=== PATIENT | male | born 1955 | race African-American/Black ===

== ENCOUNTER 2018-02-03 14:12 | Emergency (ER) | payer MEDICAID, OTHER ==
[~2018-02-03] VITALS: Ht 182.9 cm; Wt 81.8 kg
[2018-02-03 17:00] VITALS: BP 142/85
[2018-02-03] MEDS ORDERED: KETOROLAC TROMETHAMINE 10 MG TABLET PO ONE (17:00)
== END 2018-02-03 17:10 | disposition home or self-care (01) ==
LOC: EMS 14:14
DX: S50.02XA Contusion of left elbow, initial encounter (principal); W11.XXXA Fall on and from ladder, initial encounter; Y93.89 Activity, other specified; Y92.89 Other specified places as the place of occurrence of the external cause; Y99.8 Other external cause status
CPT/HCPCS: 29105; 70450; 72125; 99284

== ENCOUNTER 2018-05-26 14:22 | Emergency (ER) | payer OTHER ==
[~2018-05-26] VITALS: Ht 182.9 cm; Wt 81.8 kg
[2018-05-26 15:01] VITALS: BP 135/83
[2018-05-26] MEDS ORDERED: LIDOCAINE 2%/EPI 1:200,000/PF 20 ML VIAL INJ ONE (15:15)
== END 2018-05-26 16:47 | disposition home or self-care (01) ==
LOC: EMS 14:23
DX: S01.81XA Laceration without foreign body of other part of head, initial encounter (principal); F31.9 Bipolar disorder, unspecified; F20.9 Schizophrenia, unspecified; W22.8XXA Striking against or struck by other objects, initial encounter; Y93.89 Activity, other specified; Y92.89 Other specified places as the place of occurrence of the external cause; Y99.8 Other external cause status
CPT/HCPCS: 12014; 99283; J2001

== ENCOUNTER 2018-05-30 13:20 | Emergency (ER) | payer OTHER ==
[~2018-05-30] VITALS: Ht 182.9 cm; Wt 77.3 kg
[2018-05-30 13:26] VITALS: BP 118/90
== END 2018-05-30 16:34 | disposition left against medical advice (07) ==
LOC: EMS 16:29
DX: Z48.02 Encounter for removal of sutures (principal); Z53.21 Procedure and treatment not carried out due to patient leaving prior to being seen by health care provider

== ENCOUNTER 2021-03-12 13:44 | Emergency (ER) | payer OTHER ==
[~2021-03-12] VITALS: Ht 180.3 cm; Wt 92.6 kg
[2021-03-12] MEDS ORDERED: SODIUM CHLORIDE 0.9% 1,000 ML IV ONE (14:15)
[2021-03-12 17:03] VITALS: BP 128/72
== END 2021-03-12 18:46 | disposition left against medical advice (07) ==
LOC: EMS 14:00
DX: T40.0X1A Poisoning by opium, accidental (unintentional), initial encounter (principal); Y92.89 Other specified places as the place of occurrence of the external cause
CPT/HCPCS: 71045; 93005; 96360; 96361; 99285

== ENCOUNTER 2021-04-03 11:50 | Emergency (ER) | payer OTHER ==
[~2021-04-03] VITALS: Ht 182.9 cm; Wt 88.6 kg
[2021-04-03] MEDS ORDERED: ACETAMINOPHEN 325 MG TABLET PO ONE (13:30)
[2021-04-03] MEDS ORDERED: SODIUM CHLORIDE 0.9% 1,000 ML IV ONE (13:30)
[2021-04-03] MEDS ORDERED: IOHEXOL 350 MG/ML 100 ML VIAL ONE (13:41)
[2021-04-03] MEDS ORDERED: SODIUM CHLORIDE 0.9% 100 ML ONE (13:41)
[2021-04-03 13:52] LABS: BASOPHILS % (AUTO) 0.6 % (0.0-2.0); EOSINOPHILS % (AUTO) 4.7 % (1.0-6.0); HEMATOCRIT 45.9 % (41-53); HEMOGLOBIN 14.9 g/dL (13.5-17.5); LYMPHOCYTES # (AUTO) 2.3 K/uL (1.0-4.8); LYMPHOCYTES % (AUTO) 29.1 % (22.0-44.0); MEAN CORPUSCULAR HEMOGLOBIN 29.6 pg (26.0-34.0); MEAN CORPUSCULAR HGB CONC 32.4 G/dL (31.0-37.0); MEAN CORPUSCULAR VOLUME 91 fL (80-100); MONOCYTES # (AUTO) 0.9 K/uL (0.1-1.0); MONOCYTES % (AUTO) 11.2 % (2.0-9.0); NEUTROPHILS # (AUTO) 4.2 K/uL (1.8-7.7); NEUTROPHILS % (AUTO) 54.4 % (40.0-70.0); PLATELET COUNT (AUTO) 194 K/uL (150-450); RED BLOOD CELL COUNT(AUTO) 5.03 MIL/uL (4.50-5.90)
[2021-04-03 14:04] LABS: ANION GAP 10 mmol/L (8-16); CALCIUM, TOTAL 9.2 mg/dL (8.8-10.5); CARBON DIOXIDE 26 mmol/L (22-29); CHLORIDE 105 mmol/L (98-107); GLOMERULAR FILTR. RATE CALC > 60 mL/min (>60); GLUCOSE,RANDOM 115 mg/dL (70-110); POTASSIUM 3.3 mmol/L (3.5-5.1); SODIUM SERUM 141 mmol/L (136-145); UREA NITROGEN, BLOOD 18 mg/dL (7-18)
[2021-04-03 14:07] LABS: ALANINE AMINOTRANSFERASE 27 U/L (12-78); ALKALINE PHOSPHATASE 79 U/L (46-116); ASPARTATE AMINOTRANSFERASE 22 U/L (15-37); BILIRUBIN,TOTAL 1.1 mg/dL (0.1-1.0); LIPASE 90 U/L (73-393); TOTAL PROTEIN, SERUM 8.3 g/dL (6.4-8.2)
[2021-04-03 14:09] LABS: COVID AG,FIA SOURCE NASOPHARYNGEAL
[2021-04-03] MEDS ORDERED: POTASSIUM CHLORIDE 20 MEQ ER TABLET PO ONE (15:15)
[2021-04-03] MEDS ORDERED: CIPROFLOXACIN HCL 250 MG TABLET PO ONE (15:30)
[2021-04-03 17:14] VITALS: BP 123/70
== END 2021-04-03 20:00 | disposition home or self-care (01) ==
LOC: EMS 11:50
DX: K52.9 Noninfective gastroenteritis and colitis, unspecified (principal); R51.9 Headache, unspecified; F17.210 Nicotine dependence, cigarettes, uncomplicated; F12.90 Cannabis use, unspecified, uncomplicated; F31.9 Bipolar disorder, unspecified; F20.9 Schizophrenia, unspecified; Z20.822 Contact with and (suspected) exposure to COVID-19
CPT/HCPCS: 36415; 70450; 74177; 80053; 83690; 83735; 85025; 87426; 96360; 96361; 99285; A9575; G0480; J7030; J7050

== ENCOUNTER 2021-06-02 11:38 | Emergency (ER) | payer OTHER ==
[~2021-06-02] VITALS: Ht 188 cm; Wt 88.6 kg
[2021-06-02 20:30] VITALS: BP 130/74
== END 2021-06-02 22:00 | disposition home or self-care (01) ==
LOC: EMS 11:38
DX: T40.1X1A Poisoning by heroin, accidental (unintentional), initial encounter (principal); F31.9 Bipolar disorder, unspecified; F20.9 Schizophrenia, unspecified; F17.210 Nicotine dependence, cigarettes, uncomplicated; F12.90 Cannabis use, unspecified, uncomplicated; Y92.89 Other specified places as the place of occurrence of the external cause
CPT/HCPCS: 99285; Z7502

== ENCOUNTER 2025-08-04 23:06 | Inpatient (IN) | payer MEDICARE, OTHER ==
[~2025-08-04] VITALS: Ht 177.8 cm; Wt 89.8 kg
[2025-08-04] MEDS ORDERED: NALOXONE HCL 1 MG/ML 2 ML SYRINGE ONE (23:22)
[2025-08-04] MEDS: NALOXONE HCL 1 MG/ML 2 ML SYRINGE IVP ONE (23:26)
[2025-08-04] MEDS: SODIUM CHLORIDE 0.9% 1,000 ML IV ONE (23:43)
[2025-08-04 23:55] VITALS: PULSE 83; RESP 20; O2SAT 98
[2025-08-05] VITALS (16 sets, daily range): BP systolic 91–155; BP diastolic 55–85; PULSE 52–78; RESP 25–28; TEMP 95.5–99.2; O2SAT 94–98
[2025-08-05 00:01] LABS: APPEARANCE,URINE HAZY (CLEAR); GLUCOSE, URINE (UA) NEGATIVE (NEGATIVE); LEUKOCYTE ESTERASE ,URINE NEGATIVE (NEGATIVE); NITRATE,URINE NEGATIVE (NEGATIVE); OCCULT BLOOD,URINE LARGE (NEGATIVE); PH,URINE DRUG SCREEN 5.5 (5.0-8.0); SPECIFIC GRAVITIY, URINE 1.030 (1.003-1.030)
[2025-08-05 00:08] LABS: ALCOHOL, URINE DRUG SCREEN NEGATIVE (NEGATIVE); AMPHET/METH SCREEN,URINE NEGATIVE (NEGATIVE); BARBITURATE SCREEN, URINE NEGATIVE (NEGATIVE); CANNABINOID SCREEN,URINE POSITIVE (NEGATIVE); COCAINE SCREEN,URINE POSITIVE (NEGATIVE); METHADONE SCREEN, URINE NEGATIVE (NEGATIVE)
[2025-08-05] MEDS: LABETALOL HCL 5 MG/ML 20 ML VIAL IVP ONE ×2 (00:12→00:44)
[2025-08-05 00:16] LABS: GLUCOMETER DEV NAME(LOC) ER.7; GLUCOSE,POINT OF CARE 127 MG/DL (70-110)
[2025-08-05] MEDS: PROPOFOL 1000 MG/ISO-OSM 100 ML IV PRN ×2 (00:19→18:08)
[2025-08-05 00:27] LABS: PLATELET COUNT (AUTO) 146 K/uL (150-450); RED BLOOD CELL COUNT(AUTO) 4.55 MIL/uL (4.50-5.90); RED CELL DISTRIBUTION WIDTH 14.4 % (11.5-14.5); WHITE BLOOD COUNT (AUTO) 12.6 K/uL (4.5-11.0)
[2025-08-05 00:34] LABS: CALCIUM, TOTAL 8.3 mg/dL (8.8-10.5); CREATININE 1.02 mg/dL (0.60-1.30); GLOMERULAR FILTR. RATE CALC > 60 mL/min (>60); GLUCOSE,RANDOM 134 mg/dL (70-110); SODIUM SERUM 145 mmol/L (136-145); UREA NITROGEN, BLOOD 21 mg/dL (7-18)
[2025-08-05 00:37] LABS: ABG BASE EXCESS 0.1 mmol/L (-2.0-3.0); ABG CARBOXYHEMOGLOBIN 2.4 % (0.5-1.5); ABG HCO3 23.2 mmol/L (21.0-28.0); ABG METHEMOGLOBIN 0.9 % (0.0-1.5); ABG OXYGEN CONTENT 21.5 mL/dL (15.0-23.0); ABG OXYGEN SATURATION 100.0 % (94.0-98.0); ABG OXYHEMOGLOBIN 96.7 % (94.0-98.0); ABG PCO2 66 mmHg (32.0-48.0); ABG PH 7.239 (7.350-7.450); ABG TOTAL HEMOGLOBIN 14.9 G/dL (13.5-17.5); FRACTIONATED INSPIRED OXYGEN 100.0 % (21-100.0); SOURCE, BLOOD GAS ARTERIAL; TEMPERATURE, FAHRENHEIT, BG 98.7 FAHREN (96.0-98.6)
[2025-08-05 00:38] LABS: ABG A-A DIFF O2 184.5 mmHg (10-20.0); ALLEN TEST, BLOOD GAS Positive; O2 DEVICE,BLOOD GAS VENTILATOR (ROOM AIR); PATIENT RATE, BG 20.0 min.; PEEP,BG 5 cm H2O; PO2, ARTERIAL BG 462.3 mmHg (83.0-108.0); SET RATE, BG 20.0 min.; SITE, BLOOD GAS RT RADIAL; SPONTANEOUS VT, BG 439 ml; VT, ABG 440 ml
[2025-08-05 00:38] LABS: SQUAMOUS EPITHELIAL CELL,UR Rare /LPF (None Seen)
[2025-08-05 00:43] LABS: TROPONIN I-HIGH SENSITIVITY 17 ng/L (<76)
[2025-08-05 00:45] LABS: LACTIC ACID 2.4 mmol/L (0.4-2.0)
[2025-08-05] MEDS ORDERED: BISACODYL 10 MG RECTAL RECTAL SUPPOSITORY PR PRN (00:45)
[2025-08-05] MEDS ORDERED: MAGNESIUM SULFATE 4 GM/WATER 100 ML IV PRN (00:45)
[2025-08-05] MEDS ORDERED: MAGNESIUM OXIDE 400 MG TABLET PO PRN (00:45)
[2025-08-05] MEDS ORDERED: ACETAMINOPHEN 325 MG TABLET PO PRN (00:45)
[2025-08-05] MEDS ORDERED: ONDANSETRON HCL 4 MG/2 ML VIAL IVP PRN (00:45)
[2025-08-05] MEDS ORDERED: MAGNESIUM SULFATE 2 GM/WATER 50 ML IV PRN (00:45)
[2025-08-05 01:01] LABS: ALCOHOL, BLOOD (SERUM) < 3 mg/dL (0-10)
[2025-08-05 01:31] LABS: ABG BASE EXCESS -0.2 mmol/L (-2.0-3.0); ABG CARBOXYHEMOGLOBIN 1.8 % (0.5-1.5); ABG HCO3 23.1 mmol/L (21.0-28.0); ABG METHEMOGLOBIN 0.3 % (0.0-1.5); ABG OXYGEN CONTENT 20.2 mL/dL (15.0-23.0); ABG OXYGEN SATURATION 98.5 % (94.0-98.0); ABG OXYHEMOGLOBIN 96.4 % (94.0-98.0); ABG TOTAL HEMOGLOBIN 14.7 G/dL (13.5-17.5); FRACTIONATED INSPIRED OXYGEN 80.0 % (21-100.0); PO2, ARTERIAL BG 152.8 mmHg (83.0-108.0); SOURCE, BLOOD GAS ARTERIAL; TEMPERATURE, FAHRENHEIT, BG 98.9 FAHREN (96.0-98.6)
[2025-08-05 01:41] LABS: ABG PCO2 64 mmHg (32.0-48.0); ABG PH 7.245 (7.350-7.450); ALLEN TEST, BLOOD GAS Positive; SITE, BLOOD GAS LFT RADIAL
[2025-08-05 01:42] LABS: ABG A-A DIFF O2 350.0 mmHg (10-20.0); O2 DEVICE,BLOOD GAS VENTILATOR (ROOM AIR); PATIENT RATE, BG 24.0 min.; PEEP,BG 5 cm H2O; SET RATE, BG 24.0 min.; SPONTANEOUS VT, BG 470 ml; VT, ABG 460 ml
[2025-08-05] MEDS: FentaNYL CIT 1000MCG/0.9% NACL 100 ML IV PRN ×2 (02:25→14:07)
[2025-08-05] MEDS: POTASSIUM CHL 10 MEQ/WATER 50 ML IV PRN (02:35)
[2025-08-05] MEDS: 1: MAGNESIUM SULFATE 2 GM, MVI, ADULT NO.1 WITH VIT K 10 ML, THIAMINE 100 MG, FOLIC ACID IV SCH (02:36)
[2025-08-05] MEDS: AMPICILLIN SODIUM/SULBACTAM NA 3 GM in SODIUM CHLORIDE 0.9% 100 ML IV ONE (02:58)
[2025-08-05] MEDS: SODIUM CHLORIDE 0.9% 2,750 ML IV ONE (03:26)
[2025-08-05] MEDS: PIPERACILLIN/TAZO 3.375 GM/D5W 50 ML IV SCH (04:20)
[2025-08-05 07:08] LABS: PLATELET COUNT (AUTO) 148 K/uL (150-450); RED BLOOD CELL COUNT(AUTO) 3.94 MIL/uL (4.50-5.90); RED CELL DISTRIBUTION WIDTH 14.7 % (11.5-14.5); WHITE BLOOD COUNT (AUTO) 12.5 K/uL (4.5-11.0)
[2025-08-05 07:25] LABS: CALCIUM, TOTAL 7.9 mg/dL (8.8-10.5); CREATININE 1.09 mg/dL (0.60-1.30); GLOMERULAR FILTR. RATE CALC > 60 mL/min (>60); GLUCOSE,RANDOM 107 mg/dL (70-110); SODIUM SERUM 145 mmol/L (136-145); UREA NITROGEN, BLOOD 18 mg/dL (7-18)
[2025-08-05] MEDS: DOCUSATE SODIUM 100 MG CAPSULE PO SCH (07:52)
[2025-08-05] MEDS: HEPARIN SODIUM,PORCINE 5,000 UNITS/ML VIAL SQ SCH (07:52)
[2025-08-05 10:23] LABS: ABG A-A DIFF O2 264.0 mmHg (10-20.0); ABG BASE EXCESS -1.5 mmol/L (-2.0-3.0); ABG CARBOXYHEMOGLOBIN 0.2 % (0.5-1.5); ABG HCO3 23.3 mmol/L (21.0-28.0); ABG METHEMOGLOBIN 0.1 % (0.0-1.5); ABG OXYGEN CONTENT 17.8 mL/dL (15.0-23.0); ABG OXYGEN SATURATION 98.3 % (94.0-98.0); ABG OXYHEMOGLOBIN 98.0 % (94.0-98.0); ABG PCO2 41 mmHg (32.0-48.0); ABG PH 7.376 (7.350-7.450); ABG TOTAL HEMOGLOBIN 12.8 G/dL (13.5-17.5); ALLEN TEST, BLOOD GAS Positive; FRACTIONATED INSPIRED OXYGEN 60.0 % (21-100.0); PO2, ARTERIAL BG 118.4 mmHg (83.0-108.0); SITE, BLOOD GAS LFT RADIAL; SOURCE, BLOOD GAS ARTERIAL; TEMPERATURE, FAHRENHEIT, BG 99.0 FAHREN (96.0-98.6)
[2025-08-05 10:24] LABS: O2 DEVICE,BLOOD GAS VENTILATOR (ROOM AIR); SET RATE, BG 28.0 min.; VT, ABG 500 ml
[2025-08-05 10:26] LABS: PEEP,BG 5 cm H2O
[2025-08-05] MEDS: CHLORHEXIDINE GLUCONATE 2% TOWELETTE [2'S/6'S] TP SCH (22:38)
[2025-08-06] VITALS (17 sets, daily range): BP systolic 98–153; BP diastolic 61–82; PULSE 44–64; RESP 25–26; TEMP 98.2–99.3; O2SAT 92–100
[2025-08-06 05:49] LABS: PLATELET COUNT (AUTO) 123 K/uL (150-450); RED BLOOD CELL COUNT(AUTO) 3.70 MIL/uL (4.50-5.90); RED CELL DISTRIBUTION WIDTH 14.6 % (11.5-14.5); WHITE BLOOD COUNT (AUTO) 8.2 K/uL (4.5-11.0)
[2025-08-06 05:52] LABS: CALCIUM, TOTAL 8.2 mg/dL (8.8-10.5); CREATININE 1.06 mg/dL (0.60-1.30); GLOMERULAR FILTR. RATE CALC > 60 mL/min (>60); GLUCOSE,RANDOM 76 mg/dL (70-110); SODIUM SERUM 148 mmol/L (136-145); UREA NITROGEN, BLOOD 15 mg/dL (7-18)
[2025-08-06] MEDS: PANTOPRAZOLE SODIUM 40 MG/VIAL IVP SCH (09:16)
[2025-08-06] MEDS: DOCUSATE SODIUM 100 MG/10 ML LIQUID UDCUP PO SCH (23:34)
[2025-08-07] VITALS (21 sets, daily range): BP systolic 127–161; BP diastolic 51–96; PULSE 48–70; RESP 25; TEMP 97.4–98.8; O2SAT 95–100
[2025-08-07 06:15] LABS: PLATELET COUNT (AUTO) 131 K/uL (150-450); RED BLOOD CELL COUNT(AUTO) 4.23 MIL/uL (4.50-5.90); RED CELL DISTRIBUTION WIDTH 14.6 % (11.5-14.5); WHITE BLOOD COUNT (AUTO) 8.1 K/uL (4.5-11.0)
[2025-08-07 06:19] LABS: CALCIUM, TOTAL 8.5 mg/dL (8.8-10.5); CREATININE 1.16 mg/dL (0.60-1.30); GLOMERULAR FILTR. RATE CALC > 60 mL/min (>60); GLUCOSE,RANDOM 73 mg/dL (70-110); SODIUM SERUM 143 mmol/L (136-145); UREA NITROGEN, BLOOD 11 mg/dL (7-18)
[2025-08-07] MEDS ORDERED: IPRATROPIUM BROMIDE 0.5 MG/2.5 ML NEB SOLUTION NEB SCH (11:00)
[2025-08-07] MEDS ORDERED: ACETYLCYSTEINE 10% 100 MG/ML 4 ML NEB SOLUTION NEB SCH (13:00)
[2025-08-07] MEDS: IPRATROPIUM BROMIDE 0.5 MG/2.5 ML NEB SOLUTION NEB SCH (13:06)
[2025-08-07] MEDS: ALBUTEROL SULFATE 2.5 MG/0.5 ML NEB SOLUTION NEB SCH (13:06)
[2025-08-07] MEDS: ACETYLCYSTEINE 10% 100 MG/ML 4 ML NEB SOLUTION NEB SCH (13:07)
[2025-08-07] MEDS: BUDESONIDE 0.5 MG/2 ML NEB SOLUTION NEB SCH (22:01)
[2025-08-07] MEDS: AMINO ACIDS/PROTEIN HYDROLYS 30 ML LIQUID TUBE NG SCH (22:57)
[2025-08-08] VITALS (23 sets, daily range): BP systolic 97–151; BP diastolic 63–87; PULSE 53–83; RESP 14–33; TEMP 97.6–99.7; O2SAT 98–100
[2025-08-08 07:13] LABS: PLATELET COUNT (AUTO) 126 K/uL (150-450); RED BLOOD CELL COUNT(AUTO) 4.04 MIL/uL (4.50-5.90); RED CELL DISTRIBUTION WIDTH 15.0 % (11.5-14.5); WHITE BLOOD COUNT (AUTO) 6.6 K/uL (4.5-11.0)
[2025-08-08 07:26] LABS: CALCIUM, TOTAL 8.5 mg/dL (8.8-10.5); CREATININE 1.19 mg/dL (0.60-1.30); GLOMERULAR FILTR. RATE CALC > 60 mL/min (>60); GLUCOSE,RANDOM 79 mg/dL (70-110); SODIUM SERUM 142 mmol/L (136-145); UREA NITROGEN, BLOOD 11 mg/dL (7-18)
[2025-08-08 07:29] LABS: PHOSPHORUS 4.5 mg/dL (2.5-4.9)
[2025-08-08 15:11] LABS: ABG A-A DIFF O2 87.7 mmHg (10-20.0); ABG BASE EXCESS -2.3 mmol/L (-2.0-3.0); ABG CARBOXYHEMOGLOBIN 0.6 % (0.5-1.5); ABG HCO3 22.2 mmol/L (21.0-28.0); ABG METHEMOGLOBIN 0.2 % (0.0-1.5); ABG OXYGEN CONTENT 18.7 mL/dL (15.0-23.0); ABG OXYGEN SATURATION 92.2 % (94.0-98.0); ABG OXYHEMOGLOBIN 91.5 % (94.0-98.0); ABG PCO2 48 mmHg (32.0-48.0); ABG PH 7.314 (7.350-7.450); ABG TOTAL HEMOGLOBIN 14.5 G/dL (13.5-17.5); ALLEN TEST, BLOOD GAS Positive; FRACTIONATED INSPIRED OXYGEN 30.0 % (21-100.0); O2 DEVICE,BLOOD GAS VENTILATOR (ROOM AIR); PO2, ARTERIAL BG 69.1 mmHg (83.0-108.0); SITE, BLOOD GAS LFT RADIAL; SOURCE, BLOOD GAS ARTERIAL; TEMPERATURE, FAHRENHEIT, BG 99.5 FAHREN (96.0-98.6); VENT MODE, BG SPONTANEOUS (ROOM AIR)
[2025-08-08 15:12] LABS: PATIENT RATE, BG 22.0 min.; PEEP,BG 0 cm H2O; PRESSURE SUPPORT, BG 8 cm H2O; VT, ABG 586 ml
[2025-08-08] MEDS: SCOPOLAMINE HYDROBROMIDE 1 MG/72 HOUR PATCH TD ONE (20:24)
[2025-08-08] MEDS ORDERED: SODIUM CHLORIDE 0.9% 250 ML IV ONE (21:18)
[2025-08-08] MEDS: DEXMEDETOMIDINE 400 MCG/NS 100 ML IV PRN (21:25)
[2025-08-09] VITALS (24 sets, daily range): BP systolic 88–132; BP diastolic 58–76; PULSE 45–87; RESP 14–26; TEMP 96.7–99.2; O2SAT 94–100
[2025-08-09 05:40] LABS: PLATELET COUNT (AUTO) 128 K/uL (150-450); RED BLOOD CELL COUNT(AUTO) 4.07 MIL/uL (4.50-5.90); RED CELL DISTRIBUTION WIDTH 14.3 % (11.5-14.5); WHITE BLOOD COUNT (AUTO) 6.1 K/uL (4.5-11.0)
[2025-08-09 05:50] LABS: CALCIUM, TOTAL 8.8 mg/dL (8.8-10.5); CREATININE 0.99 mg/dL (0.60-1.30); GLOMERULAR FILTR. RATE CALC > 60 mL/min (>60); GLUCOSE,RANDOM 109 mg/dL (70-110); SODIUM SERUM 142 mmol/L (136-145); UREA NITROGEN, BLOOD 13 mg/dL (7-18)
[2025-08-09 10:45] LABS: ABG A-A DIFF O2 95.0 mmHg (10-20.0); ABG BASE EXCESS -2.3 mmol/L (-2.0-3.0); ABG CARBOXYHEMOGLOBIN 0.8 % (0.5-1.5); ABG HCO3 22.5 mmol/L (21.0-28.0); ABG METHEMOGLOBIN 0.1 % (0.0-1.5); ABG OXYGEN CONTENT 17.6 mL/dL (15.0-23.0); ABG OXYGEN SATURATION 92.7 % (94.0-98.0); ABG OXYHEMOGLOBIN 91.9 % (94.0-98.0); ABG PCO2 43 mmHg (32.0-48.0); ABG PH 7.355 (7.350-7.450); ABG TOTAL HEMOGLOBIN 13.6 G/dL (13.5-17.5); ALLEN TEST, BLOOD GAS Positive; FRACTIONATED INSPIRED OXYGEN 30.0 % (21-100.0); PO2, ARTERIAL BG 69.1 mmHg (83.0-108.0); SITE, BLOOD GAS LFT RADIAL; SOURCE, BLOOD GAS ARTERIAL; TEMPERATURE, FAHRENHEIT, BG 98.8 FAHREN (96.0-98.6)
[2025-08-09 10:46] LABS: CPAP, BG 5 cm H2O; O2 DEVICE,BLOOD GAS VENTILATOR (ROOM AIR); PATIENT RATE, BG 19.0 min.; PRESSURE SUPPORT, BG 8 cm H2O; SPONTANEOUS VT, BG 381 ml; VENT MODE, BG SPONTANEOUS (ROOM AIR)
[2025-08-10] VITALS (21 sets, daily range): BP systolic 121–187; BP diastolic 66–102; PULSE 50–86; RESP 13–35; TEMP 98.4–99.1; O2SAT 93–100
[2025-08-10 05:48] LABS: PLATELET COUNT (AUTO) 145 K/uL (150-450); RED BLOOD CELL COUNT(AUTO) 4.03 MIL/uL (4.50-5.90); RED CELL DISTRIBUTION WIDTH 14.2 % (11.5-14.5); WHITE BLOOD COUNT (AUTO) 6.6 K/uL (4.5-11.0)
[2025-08-10 05:59] LABS: CALCIUM, TOTAL 8.9 mg/dL (8.8-10.5); CREATININE 1.06 mg/dL (0.60-1.30); GLOMERULAR FILTR. RATE CALC > 60 mL/min (>60); GLUCOSE,RANDOM 85 mg/dL (70-110); SODIUM SERUM 143 mmol/L (136-145); UREA NITROGEN, BLOOD 12 mg/dL (7-18)
[2025-08-10 17:09] LABS: CALCIUM, TOTAL 8.9 mg/dL (8.8-10.5); CREATININE 0.91 mg/dL (0.60-1.30); GLOMERULAR FILTR. RATE CALC > 60 mL/min (>60); GLUCOSE,RANDOM 88 mg/dL (70-110); SODIUM SERUM 142 mmol/L (136-145); UREA NITROGEN, BLOOD 12 mg/dL (7-18)
[2025-08-11] VITALS (15 sets, daily range): BP systolic 145–159; BP diastolic 76–105; PULSE 57–82; RESP 15–22; TEMP 97.9–99.4; O2SAT 91–99
[2025-08-11 06:41] LABS: PLATELET COUNT (AUTO) 160 K/uL (150-450); RED BLOOD CELL COUNT(AUTO) 4.17 MIL/uL (4.50-5.90); RED CELL DISTRIBUTION WIDTH 14.4 % (11.5-14.5); WHITE BLOOD COUNT (AUTO) 6.7 K/uL (4.5-11.0)
[2025-08-11 07:31] LABS: CALCIUM, TOTAL 8.8 mg/dL (8.8-10.5); CREATININE 1.05 mg/dL (0.60-1.30); GLOMERULAR FILTR. RATE CALC > 60 mL/min (>60); GLUCOSE,RANDOM 196 mg/dL (70-110); SODIUM SERUM 141 mmol/L (136-145); UREA NITROGEN, BLOOD 10 mg/dL (7-18)
[2025-08-11] MEDS ORDERED: POTASSIUM CHLORIDE 10% 40 MEQ/30 ML LIQUID UDCUP PO PRN (08:30)
[2025-08-11] MEDS: POTASSIUM CHLORIDE 10% 40 MEQ/30 ML LIQUID UDCUP PO PRN (11:44)
[2025-08-11] MEDS ORDERED: SODIUM CHLORIDE 0.9% 250 ML IV ONE (15:28)
[2025-08-12] VITALS (9 sets, daily range): BP systolic 134–152; BP diastolic 81–98; PULSE 57–92; RESP 16–20; TEMP 97.9–98.6; O2SAT 94–98
[2025-08-12 07:50] LABS: PLATELET COUNT (AUTO) 179 K/uL (150-450); RED BLOOD CELL COUNT(AUTO) 4.54 MIL/uL (4.50-5.90); RED CELL DISTRIBUTION WIDTH 14.0 % (11.5-14.5); WHITE BLOOD COUNT (AUTO) 8.3 K/uL (4.5-11.0)
[2025-08-12 08:21] LABS: CALCIUM, TOTAL 9.2 mg/dL (8.8-10.5); CREATININE 0.77 mg/dL (0.60-1.30); GLOMERULAR FILTR. RATE CALC > 60 mL/min (>60); GLUCOSE,RANDOM 97 mg/dL (70-110); SODIUM SERUM 139 mmol/L (136-145); UREA NITROGEN, BLOOD 9 mg/dL (7-18)
[2025-08-12] MEDS: POTASSIUM CHLORIDE 20 MEQ ER TABLET PO PRN (09:08)
[2025-08-13] VITALS (7 sets, daily range): BP systolic 130–151; BP diastolic 89–94; PULSE 58–76; RESP 18–20; TEMP 97.3–97.9; O2SAT 91–99
[2025-08-13 05:57] LABS: PLATELET COUNT (AUTO) 213 K/uL (150-450); RED BLOOD CELL COUNT(AUTO) 4.62 MIL/uL (4.50-5.90); RED CELL DISTRIBUTION WIDTH 14.0 % (11.5-14.5); WHITE BLOOD COUNT (AUTO) 7.2 K/uL (4.5-11.0)
[2025-08-13 06:09] LABS: CALCIUM, TOTAL 9.4 mg/dL (8.8-10.5); CREATININE 1.13 mg/dL (0.60-1.30); GLOMERULAR FILTR. RATE CALC > 60 mL/min (>60); GLUCOSE,RANDOM 104 mg/dL (70-110); SODIUM SERUM 139 mmol/L (136-145); UREA NITROGEN, BLOOD 12 mg/dL (7-18)
== END 2025-08-13 13:45 | disposition left against medical advice (07) | DRG 207 ==
LOC: EMS 23:06 → EDH 08-05 00:35 → ICU 08-05 01:18 → 5S 08-11 10:40
PROVIDERS: ADMIT Internal Medicine; ATTEND Internal Medicine
PROC: 0BH17EZ Insertion of Endotracheal Airway into Trachea, Via Natural or Artificial Opening (ICD-10-PCS; principal; 2025-08-05)
PROC: 5A1955Z Respiratory Ventilation, Greater than 96 Consecutive Hours (ICD-10-PCS; 2025-08-05)
DX: J96.01 Acute respiratory failure with hypoxia (principal); G92.9 Unspecified toxic encephalopathy; J18.9 Pneumonia, unspecified organism; J69.0 Pneumonitis due to inhalation of food and vomit; I50.30 Unspecified diastolic (congestive) heart failure; J96.02 Acute respiratory failure with hypercapnia; I16.0 Hypertensive urgency; E66.9 Obesity, unspecified; F19.10 Other psychoactive substance abuse, uncomplicated; F31.9 Bipolar disorder, unspecified; F11.90 Opioid use, unspecified, uncomplicated; Z53.29 Procedure and treatment not carried out because of patient's decision for other reasons; Z87.891 Personal history of nicotine dependence; Y92.89 Other specified places as the place of occurrence of the external cause; Z68.28 Body mass index [BMI] 28.0-28.9, adult
CPT/HCPCS: 51702; 70450; 71045; 71250; 80048; 80307; 81001; 82040; 82140; 82805; 82962; 83605; 83735; 84100; 84132; 84484; 85025; 85610; 85730; 87040; 87081; 92610; 93005; 93306; 94002; 94003; 94640; 94760; 97116; 97162; 99291; G0480; J0295; J1644; J2312; J2470; J2543; J2704; J3010; J3411; J3475; J3480; J3490; J7030; J7050; 36415-L1; 36415-TC; J7613